=== PATIENT | male | born 1940 | race Caucasian/White ===

== ENCOUNTER 2020-09-24 15:35 | Outpatient (CLI) | payer MEDICARE ==
--- NOTE | 2020-09-24 16:12 | CT ---
EXAM: Brain CTWithout contrast: HISTORY: Vertigo, renal cancer COMPARISON: None FINDINGS: Bilateral chronic white matter ischemic change. No focal mass or midline shift. No intra or extra-axial hemorrhage. Sinuses and mastoids are clear of acute process. IMPRESSION: No mass or bleed or other significant acute intracranial process.
== END 2020-09-24 15:36 | disposition home or self-care (01) ==
LOC: BICCT 15:35
PROVIDERS: ATTEND Family Medicine
DX: R42 Dizziness and giddiness (principal); C64.2 Malignant neoplasm of left kidney, except renal pelvis
CPT/HCPCS: 70450

== ENCOUNTER 2020-12-22 12:43 | Outpatient (CLI) | payer MEDICARE | END 2020-12-22 12:44 | disposition home or self-care (01) | LOC: SCSMRI 12:43 | PROVIDERS: ATTEND Orthopaedic Surgery | DX: S46.011A Strain of muscle(s) and tendon(s) of the rotator cuff of right shoulder, initial encounter (principal); M19.011 Primary osteoarthritis, right shoulder; M62.511 Muscle wasting and atrophy, not elsewhere classified, right shoulder; M67.813 Other specified disorders of tendon, right shoulder ==